=== PATIENT | female | born 1950 | race Caucasian/White ===

== ENCOUNTER 2017-03-14 16:15 | Emergency (ER) | payer OTHER ==
[2017-03-14] MEDS ORDERED: HYDROCODONE/APAP (5/325) TAB ONE ×2 (18:39→20:25)
--- NOTE | 2017-03-15 10:46 | RADRPT ---
PROCEDURE: XR Hip. CLINICAL INDICATION: Pain TECHNIQUE: AP and frog lateral views of the right hip were performed. COMPARISON: AP pelvis from the same day FINDINGS: There is normal mineralization and alignment. No fracture or osseous lesion is identified. There are normal joints without evidence of arthritis or effusion. The soft tissues are unremarkable. IMPRESSION: Unremarkable right hip. RPTAT: EE .Sonia Garay MD, MD Date Time Electronically viewed and signed by .Sonia Garay MD, on 03/14/2017 20:17 .F/
--- NOTE | 2017-03-15 10:46 | RADRPT ---
PROCEDURE: XR Pelvis. CLINICAL INDICATION: Trauma. Pain. TECHNIQUE: Single AP view of the pelvis. COMPARISON: No prior studies are available for comparison. FINDINGS: There is no fracture. Hips are unremarkable. Joint relationships are maintained. Bone mineralizat ion is within normal limits. Soft tissues are unremarkable. Bowel gas pattern is unremarkable. IMPRESSION: Negative examination. RPTAT: HMVK .David Tran MD, MD Date Time Electronically viewed and signed by .David Tran MD, on 03/14/2017 20:19 .K/
== END 2017-03-14 22:28 | disposition home or self-care (01) ==
LOC: E/R 16:15
DX: S76.011A Strain of muscle, fascia and tendon of right hip, initial encounter (principal); I10 Essential (primary) hypertension; W19.XXXA Unspecified fall, initial encounter; Y92.9 Unspecified place or not applicable
CPT/HCPCS: 72170; 73510

== ENCOUNTER 2017-03-17 12:52 | Inpatient (IN) | payer OTHER ==
[~2017-03-17] VITALS: Ht 149.9 cm; Wt 54.8 kg
[2017-03-17] MEDS ORDERED: traMADol 50 MG TAB PO ONE (15:00)
--- NOTE | 2017-03-17 16:17 | RADRPT ---
PROCEDURE: CT pelvis without contrast. CLINICAL INDICATION: Persistent right hip and pelvic pain following a fall TECHNIQUE: CT scan of the pelvis without contrast was performed. Sagittal and coronal reformatted images were obtained from the axial source images. CTDI = 6.81 mGy; DLP = 183.33 mGy-cm COMPARISON: Pelvis and right hip x-ray 03/14/2017 FINDINGS: Osseous structures: Visualized lumbar spine demonstrates facet arthropathy at L4-5 with a trace ant erolisthesis. The sacrum and coccyx are unremarkable. The iliac bones including the acetabulum are normal bilaterally. There is a subtle cortical irregularity involving the right inferior pubic yesika us consistent with a nondisplaced closed fracture (series 4 images 68-71) that is a polyp on the akash in film radiographs. The femoral heads are normal bilaterally as are the proximal femoral without e vidence of fracture Musculature and soft tissues: No evidence of joint effusion, muscle hematoma or subcutaneous tissue abnormality other than incidental punctate calcified granulomata of the low fat Other findings: Diverticular disease of the colon is noted. There is a likely leiomyoma of the ut erine fundus. Atherosclerotic calcification is present within the iliac systems. There is no evide nce of free fluid in the pelvis RPTAT:HJJR IMPRESSION: 1. Subacute, closed, nondisplaced subtle hairline fracture of the right inferior pubic ramus radiogr aphically occult on the x-ray exams of 03/14/2017 without associated soft tissue abnormality. 2. No additional fractures are present. 3. Incidental diverticular disease of the colon, leiomyoma of the uterine fundus and atherosclerotic calcification of the iliac systems. Physician Daniel Date Time Electronically viewed and signed by Physician Daniel on 03/17/2017 16:17 /
[2017-03-17] MEDS ORDERED: morphine 10 MG INJ IM ONE (17:00)
[2017-03-17] MEDS ORDERED: VALS1TAB76 PO (17:08)
[2017-03-17 17:51] LABS: ADD SCAN DIFF NO
[2017-03-17 17:56] LABS: BASOPHIL # 0.1 10^3/ul (0.0-0.1); BASOPHILS % 0.8 % (0.0-2.0); EOSINOPHILS % 0.5 % (0.0-7.0); HEMATOCRIT 39.8 % (37.0-47.0); HEMOGLOBIN 13.3 g/dl (12.0-16.0); LYMPHOCYTES # 1.2 10^3/ul (0.8-2.9); LYMPHOCYTES % 15.5 % (15.0-51.0); MEAN CORPUSCULAR HEMOGLOBIN 27.1 pg (29.0-33.0); MEAN CORPUSCULAR HGB CONC 33.4 g/dl (32.0-37.0); MEAN CORPUSCULAR VOLUME 81.1 fl (82.0-101.0); MEAN PLATELET VOLUME 8.9 fl (7.4-10.4); MONOCYTE # 0.8 10^3/ul (0.3-0.9); MONOCYTES % 9.6 % (0.0-11.0); NEUTROPHIL # 5.8 10^3/ul (1.6-7.5); NEUTROPHILS % 73.3 % (39.0-77.0); PLATELET COUNT 270 10^3/UL (140-415); RED BLOOD COUNT 4.91 10^6/ul (4.20-5.40); RED CELL DISTRIBUTION WIDTH 12.6 % (11.5-14.5); WHITE BLOOD COUNT 7.9 10^3/ul (4.8-10.8)
--- NOTE | 2017-03-17 18:01 | ERA ---
ER Documentation Chief Complaint Date/Time DATE: 03/17/17 TIME: 18:01 Chief Complaint Right hip pain HPI The patient is 67-year-old female, sent into the ER because of persistent right hip pain after she fell 3 days ago. She was seen in the ER 3 days ago and had negative x-ray, pain is persistent despite taking pain medication. She denies new trauma, denies headache, neck pain, chest pain, abdominal pain, vomiting with dysuria, diarrhea. She does not smoke nor drink Past medical history: Hypertension Past surgical history: Right knee arthroscopy ROS All systems reviewed and are negative except as per history of present illness. Medications Home Meds Reported Medications Valsartan-Hydrochlorothiazide (Valsartan-HCTZ) 160-12.5 Mg Tablet, 1 TAB PO DAILY, #30 TAB 03/17/17 Allergies Allergies: Coded Allergies: erythromycin base (Verified Allergy, Intermediate, 03/17/17) PMhx/Soc History of Surgery: Yes (R knee surgery.) Anesthesia Reaction: No Hx Neurological Disorder: No Hx Respiratory Disorders: No Hx Cardiac Disorders: No Hx Psychiatric Problems: No Hx Miscellaneous Medical Probl: Yes (HTN) Hx Alcohol Use: No Hx Substance Use: No Hx Tobacco Use: No Smoking Status: Never smoker Physical Exam Vitals Vital Signs Date Time Temp Pulse Resp B/P Pulse Ox O2 Delivery O2 Flow Rate FiO2 03/17/17 20:16 72 18 130/70 96 Room Air 03/17/17 18:02 98.7 03/17/17 13:02 85 20 137/73 100 Physical Exam Const: No acute distress. Head: Atraumatic. Eyes: Normal Conjunctiva. ENT: Normal External Ears, Nose and Mouth. Neck: Full range of motion. No meningismus. Resp: Clear to auscultation bilaterally. Cardio: Regular rate and rhythm. Abd: Soft, non distended, normal bowel sounds, non tender. Skin: No petechiae or rashes. Back: No midline or flank tenderness. Ext: Moderate right hip and suprapubic tenderness, both legs equal in length Neur: Awake and alert. No focal deficit Psych: Normal Mood and Affect. Result Diagram: 03/17/17 1720 03/17/17 1720 Results 24 hrs Laboratory Tests Test 03/17/17 17:20 White Blood Count 7.910^3/ul Red Blood Count 4.9110^6/ul Hemoglobin 13.3g/dl Hematocrit 39.8% Mean Corpuscular Volume 81.1fl Mean Corpuscular Hemoglobin 27.1pg Mean Corpuscular Hemoglobin Concent 33.4g/dl Red Cell Distribution Width 12.6% Platelet Count 85856^3/UL Mean Platelet Volume 8.9fl Neutrophils % 73.3% Lymphocytes % 15.5% Monocytes % 9.6% Eosinophils % 0.5% Basophils % 0.8% Nucleated Red Blood Cells % 0.0/100WBC Neutrophils # 5.810^3/ul Lymphocytes # 1.210^3/ul Monocytes # 0.810^3/ul Eosinophils # 0.010^3/ul Basophils # 0.110^3/ul Nucleated Red Blood Cells # 0.010^3/ul Prothrombin Time 11.8Sec Prothrombin Time Ratio 0.9 INR International Normalized Ratio 0.87 Activated Partial Thromboplast Time 30.5Sec Sodium Level 135mmol/L Potassium Level 3.0mmol/L Chloride Level 98mmol/L Carbon Dioxide Level 25mmol/L Anion Gap 15 Blood Urea Nitrogen 13mg/dl Creatinine 0.62mg/dl Glucose Level 98mg/dl Calcium Level 9.6mg/dl Current Medications Medications (Trade) Dose Ordered Sig/Liliam Route PRN Reason Start Time Stop Time Status Last Admin Dose Admin Tramadol HCl (Ultram) 50 mg ONCE ONCE PO 03/17/17 15:00 03/17/17 15:01 DC 03/17/17 14:56 Morphine Sulfate (morphine) 4 mg ONCE ONCE IM 03/17/17 17:00 03/17/17 17:01 DC 03/17/17 16:52 IV Flush (NS 3 ml) 3 ml PER PROTOCOL IV 03/17/17 19:00 Ondansetron HCl (Zofran Inj) 4 mg Q6H PRN IV NAUSEA AND/OR VOMITING 03/17/17 19:00 Acetaminophen (Tylenol Tab) 650 mg Q6H PRN PO PAIN LEVEL 1-3 OR FEVER 03/17/17 19:00 Acetaminophen/ Hydrocodone Bitart ([place] (5/325)) 1 tab Q6H PRN PO MODERATE PAIN LEVEL 4-6 03/17/17 19:00 Acetaminophen/ Hydrocodone Bitart ([place] (5/325)) 2 tab Q6H PRN PO SEVERE PAIN LEVEL 7-10 03/17/17 19:00 Morphine Sulfate (morphine) 4 mg Q4H PRN IV SEVERE PAIN LEVEL 7-10 03/17/17 19:00 Valsartan (Diovan) 160 mg DAILY PO 03/18/17 09:00 Potassium Chloride (Klor-Con 20) 40 meq ONCE STAT PO 03/17/17 18:43 03/17/17 18:50 DC 03/17/17 19:38 Hydrochlorothiazide (Hydrochlorothiazide) 12.5 mg DAILY PO 03/18/17 09:00 Procedures/[place] [address] Radiology Main Line: [phone] DIAGNOSTIC IMAGING REPORT Patient: KENDELL CONNOR : 1950 Age: 67 Sex: F MR #: [id number] DOS: 03/17/17 1441 Ordering MD: DOROTEO ELLIS PA-C Location: [facility] Room/Bed: PROCEDURE: CT pelvis without contrast. CLINICAL INDICATION: Persistent right hip and pelvic pain following a fall TECHNIQUE: CT scan of the pelvis without contrast was performed. Sagittal and coronal reformatted images were obtained from the axial source images. CTDI = 6.81 mGy; DLP = 183.33 mGy-cm COMPARISON: Pelvis and right hip x-ray 03/14/2017 FINDINGS: Osseous structures: Visualized lumbar spine demonstrates facet arthropathy at L4-5 with a trace anterolisthesis. The sacrum and coccyx are unremarkable. The iliac bones including the acetabulum are normal bilaterally. There is a subtle cortical irregularity involving the right inferior pubic ramus consistent with a nondisplaced closed fracture (series 4 images 68-71) that is a polyp on the plain film radiographs. The femoral heads are normal bilaterally as are the proximal femoral without evidence of fracture Musculature and soft tissues: No evidence of joint effusion, muscle hematoma or subcutaneous tissue abnormality other than incidental punctate calcified granulomata of the low fat Other findings: Diverticular disease of the colon is noted. There is a likely leiomyoma of the uterine fundus. Atherosclerotic calcification is present within the iliac systems. There is no evidence of free fluid in the pelvis RPTAT:HJJR IMPRESSION: 1. Subacute, closed, nondisplaced subtle hairline fracture of the right inferior pubic ramus radiographically occult on the x-ray exams of 03/14/2017 without associated soft tissue abnormality. 2. No additional fractures are present. 3. Incidental diverticular disease of the colon, leiomyoma of the uterine fundus and atherosclerotic calcification of the iliac systems. Vj Liang Physician Date Time Electronically viewed and signed by Vj Liang Physician on 03/17/2017 16:17 JR/ CC: DOROTEO ELLIS PA-C MEDICAL MAKING DECISION: The patient is a 67-year-old female, presenting with right superior pubic ramus fracture. She was treated with pain medication with good response. Consultation: I discussed the patient with the on-call orthopedist Dr. Parrish , who was made aware of the lab, the treatment, the patient condition. He accepted the consult at 5:55 PM Departure Diagnosis: Primary Impression: Pubic ramus fracture Qualified Code: S32.591A - Pubic ramus fracture, right, closed, initial encounter Condition: Stable Comments I discussed the findings with the patient. I discussed the patient with the on- call hospitalist Dr. Hill at 6:30 PM who was made aware of the lab, the treatment, the patient condition and my discussion with orthopedist. The patient is admitted to medical surgery bed JAYSON SAINZ MD Mar 17, 2017 18:01
[2017-03-17 18:02] VITALS: TEMP 98.7
--- NOTE | 2017-03-17 18:06 | ERA ---
ER Documentation Chief Complaint Date/Time DATE: 03/17/17 TIME: 17:59 Chief Complaint r hip pain,pt fell last thursday, was seen here, dc'd ,pain continues 07/07 HPI 67-year-old female patient with a past medical history of hypertension presents to the ED for hip pain due to a mechanical fall that occurred 4 days ago. Reports that mainly her right groin area is painful. Patient was seen here on March 14, 2017 and received a hip and pelvis x-ray which showed no fractures or effusion. Patient was discharged and continues to have pain. States that she tried taking ibuprofen and [place] which did not relieve her pain. Denies any fever chills, abdominal pain, dysuria, urgency, frequency, flank pain, bloody stools, melena, loss of sensation, loss of range of motion, saddle anesthesia, urine or bowel incontinence, urinary retention. ROS All systems reviewed and are negative except as per history of present illness. Medications Home Meds Active Scripts Docusate Sodium (Dok) 100 Mg Capsule, 100 MG PO BID for CONSTIPATION, #30 CAP Prov:YOANDY ZEPEDA MD 03/19/17 Acetaminophen (MAPAP) 325 Mg Tablet, 650 MG PO Q6H Y for PAIN, #30 TAB Prov:YOANDY ZEPEDA MD 03/19/17 Hydrocodone Bit-Acetaminophen (Hydrocodone Bit-APAP) 5-325MG Tablet, 1 TAB PO Q6H Y for PAIN, #30 TAB Prov:YOANDY ZEPEDA MD 03/19/17 Reported Medications Valsartan-Hydrochlorothiazide (Valsartan-HCTZ) 160-12.5 Mg Tablet, 1 TAB PO DAILY, #30 TAB 03/17/17 Allergies Allergies: Coded Allergies: erythromycin base (Verified Allergy, Intermediate, 03/17/17) PMhx/Soc History of Surgery: Yes (R knee surgery.) Anesthesia Reaction: No Hx Neurological Disorder: No Hx Respiratory Disorders: No Hx Cardiac Disorders: No Hx Psychiatric Problems: No Hx Miscellaneous Medical Probl: Yes (HTN) Hx Alcohol Use: No Hx Substance Use: No Hx Tobacco Use: No Smoking Status: Never smoker Physical Exam Vitals Vital Signs Date Time Temp Pulse Resp B/P Pulse Ox O2 Delivery O2 Flow Rate FiO2 03/17/17 18:02 98.7 03/17/17 13:02 85 20 137/73 100 Physical Exam Const: Vqy-[id number], well-nourished. In no acute distress. Head: Atraumatic, normocephalic Eyes: Normal Conjunctiva without injection ENT: Normal external ear, nose and mouth. Neck: Full range of motion. No meningismus. Resp: Clear to auscultation bilaterally. No wheezing, rhonchi, rales, or crackles. No accessory muscle use. No retractions. Cardio: Regular rate and rhythm, no murmurs Skin: No petechiae or rashes Back: No midline tenderness. No CVA tenderness. Ext: No cyanosis, or edema. Cap refill less than 2 seconds. Distal pulses intact bilaterally. Tenderness to palpation of the right groin area. Neur: Awake and alert. Unable to ambulate. Muscle strength 5/5. Sensation intact bilaterally. Psych: Normal Mood and Affect Result Diagram: 03/18/17 04303/18/17 0430 Results 24 hrs Laboratory Tests Test 03/17/17 17:20 White Blood Count 7.910^3/ul Red Blood Count 4.9110^6/ul Hemoglobin 13.3g/dl Hematocrit 39.8% Mean Corpuscular Volume 81.1fl Mean Corpuscular Hemoglobin 27.1pg Mean Corpuscular Hemoglobin Concent 33.4g/dl Red Cell Distribution Width 12.6% Platelet Count 36383^3/UL Mean Platelet Volume 8.9fl Neutrophils % 73.3% Lymphocytes % 15.5% Monocytes % 9.6% Eosinophils % 0.5% Basophils % 0.8% Nucleated Red Blood Cells % 0.0/100WBC Neutrophils # 5.810^3/ul Lymphocytes # 1.210^3/ul Monocytes # 0.810^3/ul Eosinophils # 0.010^3/ul Basophils # 0.110^3/ul Nucleated Red Blood Cells # 0.010^3/ul Prothrombin Time 11.8Sec Prothrombin Time Ratio 0.9 INR International Normalized Ratio 0.87 Activated Partial Thromboplast Time 30.5Sec Sodium Level 135mmol/L Potassium Level 3.0mmol/L Chloride Level 98mmol/L Carbon Dioxide Level 25mmol/L Anion Gap 15 Blood Urea Nitrogen 13mg/dl Creatinine 0.62mg/dl Glucose Level 98mg/dl Calcium Level 9.6mg/dl Current Medications Medications (Trade) Dose Ordered Sig/Liliam Route PRN Reason Start Time Stop Time Status Last Admin Dose Admin Tramadol HCl (Ultram) 50 mg ONCE ONCE PO 03/17/17 15:00 03/17/17 15:01 DC 03/17/17 14:56 Morphine Sulfate (morphine) 4 mg ONCE ONCE IM 03/17/17 17:00 03/17/17 17:01 DC 03/17/17 16:52 Procedures/MDM This is a 67-year-old female patient with a past medical history of hypertension presents the ED complaining of right groin, right hip pain after a status post mechanical fall. Patient is afebrile and nontoxic-appearing. A CT of the pelvis was ordered to further evaluate patient. Patient was given 4 mg IM morphine, tramadol with improvement of her pain. CBC: No leukocytosis. No e/o of systemic infection. No e/o anemia. CMP: No e/o severe acidosis, alkalosis, renal failure, diabetic ketoacidosis, liver disease Coagulation studies within normal limits. PROCEDURE: CT pelvis without contrast. CLINICAL INDICATION: Persistent right hip and pelvic pain following a fall TECHNIQUE: CT scan of the pelvis without contrast was performed. Sagittal and coronal reformatted images were obtained from the axial source images. CTDI = 6.81 mGy; DLP = 183.33 mGy-cm COMPARISON: Pelvis and right hip x-ray 03/14/2017 FINDINGS: Osseous structures: Visualized lumbar spine demonstrates facet arthropathy at L4-5 with a trace anterolisthesis. The sacrum and coccyx are unremarkable. The iliac bones including the acetabulum are normal bilaterally. There is a subtle cortical irregularity involving the right inferior pubic ramus consistent with a nondisplaced closed fracture (series 4 images 68-71) that is a polyp on the plain film radiographs. The femoral heads are normal bilaterally as are the proximal femoral without evidence of fracture Musculature and soft tissues: No evidence of joint effusion, muscle hematoma or subcutaneous tissue abnormality other than incidental punctate calcified granulomata of the low fat Other findings: Diverticular disease of the colon is noted. There is a likely leiomyoma of the uterine fundus. Atherosclerotic calcification is present within the iliac systems. There is no evidence of free fluid in the pelvis RPTAT:HJJR IMPRESSION: 1. Subacute, closed, nondisplaced subtle hairline fracture of the right inferior pubic ramus radiographically occult on the x-ray exams of 03/14/2017 without associated soft tissue abnormality. 2. No additional fractures are present. 3. Incidental diverticular disease of the colon, leiomyoma of the uterine fundus and atherosclerotic calcification of the iliac systems. This case was discussed with my supervising physician, Dr. Oden due to the CT finding of a subacute closed nondisplaced subtotal hairline fracture of the right inferior pubic ramus. Since patient is unable to ambulate without help with a walker or friend, patient will be admitted for further evaluation and physical therapy. Patient's extremity symptoms have stabilized while they have been evaluated in the department and are appropriate for outpatient follow up. No evidence of fractures, dislocations, compartment syndrome, neurologic injury , vascular injury, open joint, open fracture, tendon laceration, septic arthritis, osteomyelitis, DVT, foreign body, or other emergent conditions. Departure Diagnosis: Primary Impression: Pubic ramus fracture Qualified Code: S32.591A - Pubic ramus fracture, right, closed, initial encounter Condition: Stable DOROTEO ELLIS PA-C Mar 17, 2017 18:06
[2017-03-17 18:09] LABS: INR 0.87; PROTIME 11.8 Sec (12.2-14.2); PT RATIO 0.9
[2017-03-17 18:10] LABS: PARTIAL THROMBOPLASTIN TIME 30.5 Sec (25.0-35.0)
[2017-03-17 18:26] LABS: CALCIUM 9.6 mg/dl (8.4-10.2); CREATININE 0.62 mg/dl (0.44-1.00)
[2017-03-17] MEDS ORDERED: POTASSIUM CHLORIDE (SR) 20 MEQ TAB PO STA (18:43)
[2017-03-17] MEDS ORDERED: HYDROCODONE/APAP (5/325) TAB PO PRN ×2 (19:00)
[2017-03-17] MEDS ORDERED: ONDANSETRON 4 MG INJ IV PRN (19:00)
[2017-03-17] MEDS ORDERED: morphine 4 MG/ML VIAL IV PRN (19:00)
[2017-03-17] MEDS ORDERED: NACL 0.9% 3 ML SYG IV SCH (19:00)
[2017-03-17] MEDS ORDERED: ACETAMINOPHEN 325 MG TAB PO PRN (19:00)
[2017-03-17 21:03] VITALS: BP 141/75; PULSE 76; RESP 18
[2017-03-17 21:12] VITALS: BP 141/75; RESP 18
[2017-03-17 21:25] VITALS: Ht 149.9 cm; Wt 54.8 kg
--- NOTE | 2017-03-17 23:57 | HP ---
Date/Time of Note Date/Time of Note DATE: 03/17/17 TIME: 23:57 Assessment/Plan Assessment/Plan Assessment/Plan IMPRESSION 1. fracture of the right inferior pubic ramus 2. HTN 3. Hypokalemia PLAN pain mgmt Cont home BP med and adjust as needed awaiting Ortho eval HPI/ROS Admit Date/Time Admit Date/Time Mar 17, 2017 at 18:36 Hx of Present Illness 67-year-old female patient with a past medical history of hypertension presents to the ED for hip pain due to a mechanical fall that occurred 4 days ago. Reports that mainly her right groin area is painful. Patient was seen here on March 14 and received a hip and pelvis x-ray which showed no fractures or effusion. Patient was discharged and continues to have pain. States that she tried taking ibuprofen and [place] which did not relieve her pain. In ER, pelvic CT showed Subacute, closed, nondisplaced subtle hairline fracture of the right inferior pubic ramus radiographically occult on the x-ray exams of 03/14/2017 without associated soft tissue abnormality. PMH/Family/Social Social History Smoking Status: Never smoker Exam/Review of Systems Vital Signs Vitals Vital Signs Date Time Temp Pulse Resp B/P Pulse Ox O2 Delivery O2 Flow Rate FiO2 03/17/17 21:12 98.0 76 18 141/75 92 03/17/17 21:03 Room Air Exam Constitutional: alert, distress Head: atraumatic, normocephalic Eyes: EOMI, PERRL Respiratory: clear to auscultation, normal air movement Cardiovascular: nl pulses, regular rate and rhythm Gastrointestinal: non-tender, soft Musculoskeletal: other (right hip pain) Labs Result Diagram: 03/17/17 1720 03/17/17 1720 Medications Medications Current Medications Ondansetron HCl (Zofran Inj) 4 mg Q6H PRN IV NAUSEA AND/OR VOMITING; Start at 19:00 Acetaminophen (Tylenol Tab) 650 mg Q6H PRN PO PAIN LEVEL 1-3 OR FEVER; Start at 19:00 Acetaminophen/ Hydrocodone Bitart ([place] (5/325)) 1 tab Q6H PRN PO MODERATE PAIN LEVEL 4-6; Start 03/17/17 at 19:00 Acetaminophen/ Hydrocodone Bitart ([place] (5/325)) 2 tab Q6H PRN PO SEVERE PAIN LEVEL 7-10; Start 03/17/17 at 19:00 Morphine Sulfate (morphine) 4 mg Q4H PRN IV SEVERE PAIN LEVEL 7-10; Start 03/17 at 19:00 Valsartan (Diovan) 160 mg DAILY PO ; Start 03/18/17 at 09:00 Hydrochlorothiazide (Hydrochlorothiazide) 12.5 mg DAILY PO ; Start 03/18/17 at 09:00 Miscellaneous Information Patients own medicat... BID@ XX ; Start 03/18/17 at 10:00 YOANDY ZEPEDA MD Mar 17, 2017 23:57
[2017-03-18 06:19] LABS: ADD SCAN DIFF NO
[2017-03-18 06:27] LABS: BASOPHILS % 0.6 % (0.0-2.0); EOSINOPHILS % 0.5 % (0.0-7.0); HEMATOCRIT 36.9 % (37.0-47.0); HEMOGLOBIN 12.3 g/dl (12.0-16.0); LYMPHOCYTES # 1.2 10^3/ul (0.8-2.9); LYMPHOCYTES % 18.3 % (15.0-51.0); MEAN CORPUSCULAR HEMOGLOBIN 27.5 pg (29.0-33.0); MEAN CORPUSCULAR HGB CONC 33.3 g/dl (32.0-37.0); MEAN CORPUSCULAR VOLUME 82.4 fl (82.0-101.0); MEAN PLATELET VOLUME 8.9 fl (7.4-10.4); MONOCYTE # 0.7 10^3/ul (0.3-0.9); NEUTROPHIL # 4.5 10^3/ul (1.6-7.5); NEUTROPHILS % 69.4 % (39.0-77.0); PLATELET COUNT 283 10^3/UL (140-415); RED BLOOD COUNT 4.48 10^6/ul (4.20-5.40); RED CELL DISTRIBUTION WIDTH 12.6 % (11.5-14.5); WHITE BLOOD COUNT 6.4 10^3/ul (4.8-10.8)
[2017-03-18 07:02] LABS: ALBUMIN 4.2 g/dl (3.3-4.9); ALBUMIN/GLOBULIN RATIO 1.75; BILIRUBIN,INDIRECT 0.5 mg/dl (0-1.1); BILIRUBIN,TOTAL 0.5 mg/dl (0.2-1.3); CALCIUM 9.8 mg/dl (8.4-10.2); CREATININE 0.55 mg/dl (0.44-1.00); PHOSPHORUS 4.1 mg/dl (2.5-4.9); TOTAL PROTEIN 6.6 g/dl (6.1-8.1)
[2017-03-18 08:00] VITALS: BP 146/81; PULSE 72; RESP 18
[2017-03-18] MEDS: HYDROCHLOROTHIAZIDE 12.5 MG CAP PO SCH (09:01)
[2017-03-18] MEDS: VALSARTAN 160 MG TAB PO SCH (09:01)
[2017-03-18 20:11] VITALS: BP 135/75; RESP 18
[2017-03-19 08:14] VITALS: BP 120/77; RESP 16
[2017-03-19] MEDS: HYDROCHLOROTHIAZIDE 12.5 MG CAP PO SCH (09:16)
[2017-03-19] MEDS: VALSARTAN 160 MG TAB PO SCH (09:16)
[2017-03-19] MEDS ORDERED: DOCUSATE SODIUM 100 MG CAP PO SCH (12:30)
--- NOTE | 2017-03-19 13:45 | PN ---
Date/Time of Note Date/Time of Note DATE: 03/18/17 TIME: 13:45 Assessment/Plan VTE Prophylaxis VTE Prophylaxis Intervention: SCD's Lines/Catheters IV Catheter Type (from Nrsg): Saline Lock Assessment/Plan Assessment/Plan IMPRESSION 1. fracture of the right inferior pubic ramus 2. HTN 3. Hypokalemia PLAN pain mgmt Cont home BP med and adjust as needed awaiting Ortho eval Subjective 24 Hr Interval Summary Free Text/Dictation hip pain is better Exam/Review of Systems Vital Signs Vitals Vital Signs Date Time Temp Pulse Resp B/P Pulse Ox O2 Delivery O2 Flow Rate FiO2 03/19/17 08:14 98.6 77 16 120/77 97 03/18/17 08:00 Room Air Intake and Output 03/18/17 03/18/17 03/19/17 15:00 23:00 07:00 Intake Total 620 ml 100 ml Output Total 1450 ml 200 ml Balance -830 ml -100 ml Exam Constitutional: alert, distress Head: atraumatic, normocephalic Eyes: EOMI, PERRL Respiratory: clear to auscultation, normal air movement Cardiovascular: nl pulses, regular rate and rhythm Gastrointestinal: non-tender, soft Musculoskeletal: other (right hip pain) Results Result Diagram: 03/18/17 0430 03/18/17 043 Medications Medications Current Medications Ondansetron HCl (Zofran Inj) 4 mg Q6H PRN IV NAUSEA AND/OR VOMITING; Start at 19:00 Acetaminophen (Tylenol Tab) 650 mg Q6H PRN PO PAIN LEVEL 1-3 OR FEVER; Start at 19:00 Acetaminophen/ Hydrocodone Bitart ([place] (5/325)) 1 tab Q6H PRN PO MODERATE PAIN LEVEL 4-6; Start 03/17/17 at 19:00 Acetaminophen/ Hydrocodone Bitart ([place] (5/325)) 2 tab Q6H PRN PO SEVERE PAIN LEVEL 7-10; Start 03/17/17 at 19:00 Morphine Sulfate (morphine) 4 mg Q4H PRN IV SEVERE PAIN LEVEL 7-10; Start 03/17 at 19:00 Valsartan (Diovan) 160 mg DAILY PO Last administered on 03/19/17t 09:16; Admin Dose 160 MG; Start 03/18/17 at 09:00 Hydrochlorothiazide (Hydrochlorothiazide) 12.5 mg DAILY PO Last administered on 03/19/17t 09:16; Admin Dose 12.5 MG; Start 03/18/17 at 09:00 Miscellaneous Information Patients own medicat... BID@10,16 XX ; Start 03/18/17 at 10:00 Docusate Sodium (Colace) 100 mg BID PO ; Start 03/19/17 at 12:30 YOANDY ZEPEDA MD Mar 19, 2017 13:45
[2017-03-19] MEDS ORDERED: HYDR-3498 PO (13:50)
[2017-03-19] MEDS ORDERED: DOCU-216 PO (13:50)
[2017-03-19] MEDS ORDERED: ACET325T40 PO (13:50)
--- NOTE | 2017-03-19 13:52 | PDOCDIS ---
Discharge Instructions CONDITION Patient Condition: Stable HOME CARE INSTRUCTIONS: Special Diet: regular ACTIVITY: Activity Restrictions: Slowly Increase Activity Avoid heavy lifting Avoid Heavy Housework FOLLOW UP/APPOINTMENTS Follow-up Plan follow-up with primary care Doctor and orthopedist OTHER ORDERS: Other Orders: Call 911 and go to the nearest ER if you develop severe hip pain, difficulty walking, shortness of breath YOANDY ZEPEDA MD Mar 19, 2017 13:52
--- NOTE | 2017-03-19 13:56 | CONS ---
DATE OF ADMISSION: 03/17/2017 DATE OF CONSULTATION: 03/19/2017 TYPE OF CONSULTATION: Orthopedic The patient reports a fall 5 days ago with pain in the right hip. Admitted for evaluation. A CAT s can showed a nondisplaced subtle hairline fracture, right inferior pubic ramus. Today, the patient is comfortable sitting, not taking any pain medication. She is able to move the leg. Neurovascular status intact. Compartments are soft. IMPRESSION: Stable, subtle hairline fracture, right inferior pubic ramus. The patient can be procee ding weightbearing as tolerated. No further intervention anticipated. Followup x-ray in 2 weeks re commended. Dictated By: GIRISH SEN/SARA Conf#: [id number] DID#: [id number]
== END 2017-03-19 19:23 | disposition home health service (06) | DRG 536 ==
LOC: FTE 12:52 → PP2 18:36
PROVIDERS: ADMIT Internal Medicine; ATTEND Internal Medicine
DX: S32.591A Other specified fracture of right pubis, initial encounter for closed fracture (principal); I10 Essential (primary) hypertension; W01.0XXA Fall on same level from slipping, tripping and stumbling without subsequent striking against object, initial encounter; E87.6 Hypokalemia
CPT/HCPCS: 36415; 72192; 80048; 80053; 83735; 84100; 85025; 85610; 85730; 96372; 97116; 97162; 97530; J2270